=== PATIENT | male | born 1970 | race Caucasian/White ===

== ENCOUNTER → 2023-02-17 12:41 | Outpatient (CLI) | payer BC, SELFPAY ==
--- NOTE | ~2023-02-17 | MR_ITS ---
MRI of the brain Clinical History: Migraine headache Technique: Axial and sagittal T1-weighted images were acquired. These were followed by axial T2-weigh nydia, diffusion weighted, gradient, and FLAIR images. Findings: There is no abnormal signal in the brain parenchyma. No acute infarct, intracranial hemorrh age, or mass lesion. Ventricles and subarachnoid spaces are unremarkable. Orbits are unremarkable. Paranasal sinuses and m astoid air cells are clear. Major intracranial flow voids are intact. Sagittal midline structures are intact. IMPRESSION: Unremarkable exam. Reviewed, dictated and finalized at location M. IMPRESSION: Unremarkable exam.
== END ==
PROVIDERS: Visit Provider Otolaryngology
DX: G43.909 Migraine, unspecified, not intractable, without status migrainosus (principal)
CPT/HCPCS: 70551

== ENCOUNTER 2023-03-17 07:47 | Outpatient (CLI) | payer BC, SELFPAY | END 2023-03-17 07:48 | disposition home or self-care (01) | LOC: ANHBWCAUD 07:48 | PROVIDERS: Visit Provider Otolaryngology | DX: H93.19 Tinnitus, unspecified ear (principal); H90.42 Sensorineural hearing loss, unilateral, left ear, with unrestricted hearing on the contralateral side | CPT/HCPCS: 92557; 92567 ==